=== PATIENT | male | born 1965 | race Caucasian/White ===

== ENCOUNTER 2017-12-20 12:54 | Emergency (ER) | payer BC ==
[~2017-12-20] VITALS: Ht 182.9 cm; Wt 85.6 kg
[~2017-12-20 12:54] MED LIST: ALLOPURINOL300 MG PO; CIPRO500 MG PO; COLCRYS0.6 MG PO; MOTRIN800 MG PO
[2017-12-20 12:57] VITALS: BP 122/84
== END 2017-12-20 14:04 | disposition home or self-care (01) ==
LOC: EME 12:54
PROC: 0HQ1XZZ Repair Face Skin, External Approach (ICD-10-PCS; principal; 2017-12-20)
DX: S01.112A Laceration without foreign body of left eyelid and periocular area, initial encounter (principal); W22.09XA Striking against other stationary object, initial encounter; Y93.89 Activity, other specified
CPT/HCPCS: 99281; 99284